=== PATIENT | male | born 1950 | race Caucasian/White ===

== ENCOUNTER → 2016-12-22 | Outpatient (CLI) | payer BC ==
[~2016-12-22] MED LIST: ASPEC81 PO; CARV3.122 PO; GABA-113 PO; GLIP5TAB11 PO; LISI-461 PO; LPT/40 PO
[2016-12-22 10:06] LABS: HEMATOCRIT 42.4 % (42-52); MEAN CELL VOLUME 92.2 fL (80-100); MEAN CORPUSCULAR HEMOGLOBIN 32.6 pg (25-34); MEAN CORPUSCULAR HGB CONC 35.4 g/dl (32-36); MEAN PLATELET VOLUME 10.2 fL (7.4-10.4); PLATELET COUNT 193 K/uL (130-400); WHITE BLOOD COUNT 5.15 K/uL (4.8-10.8)
[2016-12-22 10:23] LABS: ESTIMATED AVERAGE GLUCOSE 148 mg/dl; HA1C FLAG Normal (Normal)
[2016-12-22 10:35] LABS: ALT/SGPT 28 U/L (12-78); AST/SGOT 15 U/L (15-37); BLOOD UREA NITROGEN 14 mg/dl (7-18); BUN/CREATININE RATIO 18.7 (10-20); CALCIUM 9.2 mg/dl (8.5-10.1); CARBON DIOXIDE 28 mmol/L (21-32); CHLORIDE 105 mmol/L (98-107); CREATININE 0.76 mg/dl (0.60-1.40); GLUCOSE 100 mg/dl (70-99); POTASSIUM 3.9 mmol/L (3.5-5.1); SODIUM 137 mmol/L (136-145)
[2016-12-22 10:37] LABS: ALB/GLOB RATIO 1.2 (0.9-2); ALKALINE PHOSPHATASE 71 U/L (45-117); CHOLESTEROL 185 mg/dl (0-200); CHOLESTEROL/HDL RATIO 4.1; HDL CHOLESTEROL 45 mg/dl; LDL CHOLESTEROL CALCULATED 106 mg/dl; TRIGLYCERIDES 171 mg/dl (0-150); VERY LOW DENSITY LIPOPROT CALC 34 mg/dl
== END | disposition home or self-care (01) ==
LOC: C.LAB 08:56
PROVIDERS: ATTEND Internal Medicine
DX: Z00.00 Encounter for general adult medical examination without abnormal findings (principal); E11.9 Type 2 diabetes mellitus without complications; E78.5 Hyperlipidemia, unspecified

== ENCOUNTER → 2017-06-13 | Outpatient (CLI) | payer BC ==
[2017-06-13 09:43] LABS: HEMATOCRIT 45.8 % (42-52); HEMOGLOBIN 16.5 g/dL (14.0-18.0); MEAN CELL VOLUME 91.8 fL (80-100); MEAN CORPUSCULAR HEMOGLOBIN 33.1 pg (25-34); PLATELET COUNT 184 K/uL (130-400); RED CELL DISTRIBUTION WIDTH CV 12.2 % (11.5-14.5); RED CELL DISTRIBUTION WIDTH SD 41.2 fL (36.4-46.3); WHITE BLOOD COUNT 4.65 K/uL (4.8-10.8)
[2017-06-13 09:50] LABS: HEMOGLOBIN A1C 6.8 % (4.5-5.6)
[2017-06-13 10:02] LABS: ALBUMIN 4.1 gm/dl (3.4-5.0); ALT/SGPT 37 U/L (12-78); BLOOD UREA NITROGEN 19 mg/dl (7-18); CALCIUM 9.6 mg/dl (8.5-10.1); CARBON DIOXIDE 26 mmol/L (21-32); CHOLESTEROL 271 mg/dl (0-200); CREATININE 0.91 mg/dl (0.60-1.40); GLUCOSE 131 mg/dl (70-99); SODIUM 136 mmol/L (136-145)
[2017-06-13 10:12] LABS: ALKALINE PHOSPHATASE 68 U/L (45-117); AST/SGOT 17 U/L (15-37); LDL CHOLESTEROL CALCULATED 185 mg/dl; TOTAL PROTEIN 7.7 gm/dl (6.4-8.2)
== END | disposition home or self-care (01) ==
LOC: C.LAB 09:03
PROVIDERS: ATTEND Internal Medicine
DX: Z00.00 Encounter for general adult medical examination without abnormal findings (principal); I25.10 Atherosclerotic heart disease of native coronary artery without angina pectoris; R53.83 Other fatigue; E11.9 Type 2 diabetes mellitus without complications; I10 Essential (primary) hypertension; E78.5 Hyperlipidemia, unspecified

== ENCOUNTER → 2017-07-10 | Outpatient (CLI) | payer BC ==
[~2017-07-10] VITALS: Ht 167.6 cm; Wt 94.8 kg
[~2017-07-10] MED LIST changes: +ASPI81TA28 PO; +CALC500C70 PO; +TAMS0.4C38 PO
[2017-07-10 11:11] VITALS: Ht 167.6 cm; Wt 94.8 kg
--- NOTE | 2017-07-10 11:44 | PAT Medication Instructions ---
Service Date Jul 10, 2017. Current Home Medication List Aspirin (Aspirin Ec), 81 MG PO QAM Calcium/Vitamin D (Os-James 500 Plus D), 1 TAB PO QAM Carvedilol (Coreg), 3.125 MG PO BID Glipizide (Glucotrol), 5 MG PO BID Lisinopril (Zestril), 10 MG PO QAM Tamsulosin Hcl (Flomax), 0.8 MG PO QAM Medication Instructions For Your Scheduled Surgery - Check with surgeon and prescribing physician for instructions: Aspirin (Aspirin Ec), 81 MG PO QAM - Hold the following medications the morning of surgery: Calcium/Vitamin D (Os-James 500 Plus D), 1 TAB PO QAM Glipizide (Glucotrol), 5 MG PO BID Lisinopril (Zestril), 10 MG PO QAM Tamsulosin Hcl (Flomax), 0.8 MG PO QAM - Take the following medications the morning of surgery with a sip of water: Carvedilol (Coreg), 3.125 MG PO BID - Take the following medications as scheduled the night before surgery: Glipizide (Glucotrol), 5 MG PO BID Carvedilol (Coreg), 3.125 MG PO BID If you have any questions please call us at [phone] or [phone] or [phone]
[2017-07-10 12:37] LABS: BASO % 0.4 %; BASO ABS # 0.02 K/uL (0-0.2); EOS % 2.6 %; EOS ABS # 0.13 K/uL (0-0.5); HEMATOCRIT 43.6 % (42-52); HEMOGLOBIN 15.8 g/dL (14.0-18.0); IG# 0.01 K/uL (0.00-0.02); LYMPH % 38.1 %; LYMPH ABS # 1.89 K/uL (1.2-3.4); MEAN CELL VOLUME 90.1 fL (80-100); MEAN CORPUSCULAR HEMOGLOBIN 32.6 pg (25-34); MEAN CORPUSCULAR HGB CONC 36.2 g/dl (32-36); MEAN PLATELET VOLUME 9.9 fL (7.4-10.4); MONO % 8.9 %; MONO ABS # 0.44 K/uL (0.11-0.59); NEUT % 49.8 %; NEUT ABS # 2.47 K/uL (1.4-6.5); PLATELET COUNT 195 K/uL (130-400); RED CELL DISTRIBUTION WIDTH CV 12.2 % (11.5-14.5); RED CELL DISTRIBUTION WIDTH SD 40.2 fL (36.4-46.3); WHITE BLOOD COUNT 4.96 K/uL (4.8-10.8)
--- NOTE | 2017-07-10 12:40 | DIAGNOSTIC IMAGING REPORT ---
CHEST 2 VIEWS ROUTINE CLINICAL HISTORY: PAT preoperative evaluation COMPARISON STUDY: 05/28/2015 FINDINGS: The bones soft tissues and hemidiaphragms are normal. The cardiomediastinal silhouette is normal. The lungs are clear. The pulmonary vasculature is normal. IMPRESSION: Negative chest. The above report was generated using voice recognition software. It may contain grammatical, syntax or spelling errors. Electronically signed by: Kemar Gonzalez M.D. 07/10/2017 12:38 PM Dictated Date/Time: 07/10/2017 12:37 PM
== END | disposition home or self-care (01) ==
LOC: C.LAB 08:00 → EDSTATUS 08-05 09:15
PROVIDERS: ATTEND Orthopaedic Surgery Orthopaedic Surgery of the Spine
DX: Z01.812 Encounter for preprocedural laboratory examination (principal); Z01.810 Encounter for preprocedural cardiovascular examination; Z01.818 Encounter for other preprocedural examination

== ENCOUNTER → 2017-12-25 | Outpatient (CLI) | payer BC ==
[~2017-12-25] MED LIST changes: -ASPEC81 PO; -GABA-113 PO; -LPT/40 PO
--- NOTE | 2017-12-25 14:45 | DIAGNOSTIC IMAGING REPORT ---
R FOOT MIN 3 VIEWS ROUTINE CLINICAL HISTORY: 67 years-old Male presenting with RIGHT FOOT PAIN. TECHNIQUE: Frontal, oblique, and lateral views the right foot were obtained. COMPARISON: None. FINDINGS: Accessory navicular noted. No acute fracture or malalignment. Mild osteophytosis at the first metatarsophalangeal joint. Joint space at the first MTP is preserved. No radiographic soft tissue abnormality. IMPRESSION: No acute osseous injury. Electronically signed by: Steven Baker M.D. 12/25/2017 2:44 PM Dictated Date/Time: 12/25/2017 2:43 PM
== END | disposition home or self-care (01) ==
LOC: C.RAD1850 14:28
PROVIDERS: ATTEND Internal Medicine
DX: M79.671 Pain in right foot (principal)

== ENCOUNTER → 2017-12-31 | Outpatient (CLI) | payer BC ==
[2017-12-31 11:34] LABS: ALBUMIN 4.2 gm/dl (3.4-5.0); ALT/SGPT 28 U/L (12-78); AST/SGOT 17 U/L (15-37); BLOOD UREA NITROGEN 18 mg/dl (7-18); CALCIUM 9.3 mg/dl (8.5-10.1); CARBON DIOXIDE 24 mmol/L (21-32); CHOLESTEROL 211 mg/dl (0-200); CREATININE 0.82 mg/dl (0.60-1.40); GLUCOSE 139 mg/dl (70-99); SODIUM 135 mmol/L (136-145)
[2017-12-31 11:36] LABS: ALKALINE PHOSPHATASE 72 U/L (45-117); LDL CHOLESTEROL CALCULATED 116 mg/dl
--- NOTE | 2017-12-31 11:58 | DIAGNOSTIC IMAGING REPORT ---
CT SCAN OF THE LUMBAR SPINE WITHOUT IV CONTRAST CLINICAL HISTORY: Low back pain. COMPARISON STUDY: MRI of the lumbar spine dated 10/05/2011. Radiographs of lumbar spine dated 10/07/2015. TECHNIQUE: CT scan of the lumbar spine is performed from the lower thoracic spine to the sacrum. Images are reviewed in the axial, sagittal, and coronal planes. IV contrast was not administered for this examination. A dose lowering technique was utilized adhering to the principles of ALARA. The examination is degraded by streak artifact from extensive thoracolumbar spinal fusion hardware. CT DOSE: 821.80 mGy.cm FINDINGS: The skeletal structures are osteopenic. There is no evidence of fracture or malalignment involving the lumbar spine. Vertebral body height is maintained. There is minimal retrolisthesis at L1-L2 and L4-L5. Alignment is otherwise preserved. There is straightening of the lumbar lordosis. There are postoperative changes from laminectomy and posterior fusion seen from T12 to S1. Interpedicular screws are present at all levels. There has been fracture of the right interpedicular screw of S1. The orthopedic hardware is otherwise intact. Bilateral iliac bolts are in place. Anterior osteophytes are seen throughout. No lytic or blastic lesion is seen. The transverse processes appear intact. There has been discectomy at L4-L5 and L5-S1. Advanced disc space narrowing is seen at T12-L1 and L1-L2. Moderate disc space narrowing is seen at L2-L3 and L3-L4. There is no evidence of large disc herniation or high-grade central canal stenosis by CT. There is chronic-appearing fracture involving the left sacral ala seen extending between the interpedicular screw and the iliac bolt (axial images number 314 and number 322). The imaged sacrum is otherwise intact. Fatty atrophy and postoperative change are noted within the paraspinous musculature. The iliopsoas muscles are normal in appearance. There is advanced atherosclerotic calcification and mild ectasia of the abdominal aorta. No retroperitoneal lymphadenopathy is seen. IMPRESSION: 1. No acute bony abnormality is identified involving the lumbar spine. 2. Osteopenia with extensive postoperative and degenerative changes as above. 3. There is fracture of the right interpedicular screw at S1. 4. There is chronic-appearing fracture involving the left sacral ala between the S1 interpedicular screw and the iliac bolt. Dictated: 12/31/2017 11:41 AM Transcribed: 12/31/2017 11:58 AM [email or web address] Electronically signed by: Paul Esposito M.D. 12/31/2017 12:08 PM Dictated Date/Time: 12/31/2017 11:41 AM
[2017-12-31 12:15] LABS: HEMATOCRIT 43.9 % (42-52); HEMOGLOBIN 15.7 g/dL (14.0-18.0); MEAN CELL VOLUME 90.7 fL (80-100); MEAN CORPUSCULAR HEMOGLOBIN 32.4 pg (25-34); MEAN CORPUSCULAR HGB CONC 35.8 g/dl (32-36); MEAN PLATELET VOLUME 10.4 fL (7.4-10.4); PLATELET COUNT 173 K/uL (130-400); RED CELL DISTRIBUTION WIDTH CV 12.2 % (11.5-14.5); RED CELL DISTRIBUTION WIDTH SD 40.2 fL (36.4-46.3); WHITE BLOOD COUNT 4.29 K/uL (4.8-10.8)
[2017-12-31 12:50] LABS: HEMOGLOBIN A1C 7.6 % (4.5-5.6)
== END | disposition home or self-care (01) ==
LOC: C.CTS 10:21
PROVIDERS: ATTEND Orthopaedic Surgery Orthopaedic Surgery of the Spine
DX: Z00.00 Encounter for general adult medical examination without abnormal findings (principal); M47.26 Other spondylosis with radiculopathy, lumbar region; M85.88 Other specified disorders of bone density and structure, other site; E11.9 Type 2 diabetes mellitus without complications; R35.1 Nocturia; I10 Essential (primary) hypertension

== ENCOUNTER 2023-06-27 08:12 | Observation (INO) ==
--- NOTE | 2023-06-27 08:54 | History & Physical Bridge Note ---
Date of Service June 27, 2023 History & Physical Bridge Note I have examined the patient, reviewed the History & Physical and in the interval since the performance of the History & Physical I have noted the following changes of clinical significance: no changes noted
--- NOTE | 2023-06-27 08:55 | Pre Anesthesia Assessment ---
Date of Service June 27, 2023 Pre Sedation Assessment Vital Signs Temp Pulse Resp BP Pulse Ox O2 Del Method 06/27/23 08:36 37 C 62 20 172/92 H 97 Room Air Cardiovascular + regular rate Respiratory + respiratory effort normal Pre-Sedation Airway Assessment Smoking Status: Former smoker Hx Sleep Apnea: No Hx Difficult Intubation: No Short, Thick Neck: No Thyromental Distance: > or= 3.5 Finger Breadths Oral Cavity: + Dentures Mallampati Class: II ASA: ASA3 NPO Status Date of Last Intake of Fluids: 06/26/23 Date of Last Intake of Solid Food: 06/26/23 Procedure Planning Contraindications for Sedation: none Current Medications Reviewed: Yes Notes The planned sedation has been discussed with the patient. Informed Consent was obtained. I have identified the patient, determined the appropriateness of sedation and have assessed the patient immediately prior to the procedure. All medicine(s) and interventions are by my order.
[2023-06-27] MEDS: ASPIRIN 81 MG CHEW ONE (09:00)
[2023-06-27] MEDS: NITROGLYCERIN/D5W 100MCG/ML 20ML SYR ONE (11:12)
[2023-06-27] MEDS: niCARdipine HCL INJ 2.5 MG/ML 10 ML AMP ONE (11:12)
[2023-06-27 12:11] LABS: Chol HDL Ratio 6.1 (0-5)
[2023-06-27] MEDS: HEPARIN (PORCINE) 1000 UNIT/ML 10 ML (CATH LAB USE ONLY) ONE (12:16)
[2023-06-27] MEDS: fentaNYL citrate PF 100 MCG/2 ML VIAL ONE (12:16)
[2023-06-27] MEDS: MIDAZOLAM HCL 1 MG/ML 2ML VIAL ONE ×2 (12:17→12:19)
[2023-06-27] MEDS: OPTIRAY 350 ONE (12:18)
[2023-06-27] MEDS: IODIXANOL (VISIPAQUE) 320 MG/ML 100ML IV ONE (12:19)
--- NOTE | 2023-06-27 12:24 | Cardiac Catheterization ---
[facility] Data: Prefitter Doors Cardiac Status Clinical evaluation leading to the procedure CAD Presenation: Stable angina Diagnostic Physicians Name: Dixon Sutton MD Closure Device Recommendations: CABG Cardiac Cath Procedure Full Procedure Date June 27, 2023 Pre-Procedure Diagnosis Pre-Procedure Diagnosis: Angina AUC Score AUC Score: 7 Post-Procedure Diagnosis Post-Procedure Diagnosis: Severe CAD Procedure(s) Performed Procedure(s) Performed: Coronary Angiography, Left Heart Cath and Right Heart Cath Building Maintenance Supervisor Dixon Sutton MD Diesel Powerplant Supervisor(s) none Estimated Blood Loss Estimated Blood Loss: 15cc Medication(s) Medication(s): Fentanyl, Heparin, Lidocaine 1%, Nicardipine, Nitroglycerin and Versed Summary of Findings Procedure performed: Right heart catheterization, left heart catheterization, selective coronary angiography Staff assembly leader: Dixon Sutton MD Indication: The patient is a 72-year-old individual with a history of nonobstructive coronary disease based on a cardiac catheterization performed in 2010. Despite normal outpatient testing for obstructive coronary disease, he continues to have symptoms and recently presented to the emergency room with exertional chest pain. As such he was advised to consider right and left heart catheterization and coronary angiography today. Procedure in detail The patient was informed the risks benefits and alternatives to the intended procedure. He understood which proceed. He was taken to the cardiac catheterization suite in a fasting state. Conscious sedation was administered per protocol the patient was monitored electrocardiographically throughout today's procedure. A sterile IV had been placed in the right antecubital vein prior to the procedure. This vein was used to facilitate passage of a balloon tip catheter for pressure measurements in the heart and hemodynamic measurements of cardiac output prior to removal. Hemostasis was achieved at this site using manual pressure. The right radial area was prepped and draped in usual sterile fashion. This area was anesthetized using subcutaneous menstruation of a lidocaine solution. Right radial artery was accessed using Seldinger technique and a sheath was placed over guidewire at this site. An attempt to advance the catheter failed at the antecubital fossa. The artery at this point developed a 360 degree turn which could not be negotiated with the catheter. The radial artery sheath was subsequently removed and HemoBand was applied for direct pressure. The left radial area was subsequently prepped and draped in usual sterile fashion. This area was anesthetized using subcutaneous menstruation of lidocaine solution. The left radial artery was subsequently accessed and a sheath was placed over guidewire at this site. However, again the guidewire failed to negotiate the antecubital fossa. There appeared to be significant stenosis of the artery at the antecubital fossa. Catheter could not be passed proximal to that site and this again was abandoned. The left radial artery sheath was removed and hemostasis was achieved using a HemoBand. The right femoral area was prepped and draped in usual sterile fashion. This area was anesthetized using subcutaneous menstruation of lidocaine solution. The right femoral artery was subsequently accessed using Seldinger technique and a sheath was placed over guidewire at this site. The sheath was used facilitate passage of the cardiac catheters for selective coronary angiography and left heart catheterization. Images were obtained in multiple orthogonal views prior removal of the catheters and sheath. The sheath was subsequently removed and he mostasis was achieved using manual pressure. The patient tolerated procedure well. There were no immediate complications. Findings Coronary angiography Left main: Left main was long but bifurcated normally into the left anterior descending and left circumflex arteries. There is approximately 30% stenosis in its midportion Left anterior descending: Left anterior descending was a normal-sized vessel which reached the apex. It produced a very high 1st diagonal branch which had significant luminal irregularities. There was approximately 80% stenosis shortly after the bifurcation from the left main. The vessel subsequently produced a large 2nd diagonal branch with a 90% stenosis in its midportion. Distal to the 2nd diagonal there was a discrete 80% stenosis followed by an aneurysmal segment and an additional distal stenosis. Left circumflex: Left circumflex was a dominant artery. There were 3 medium- sized obtuse marginal branches. There were luminal irregularities throughout the circumflex distribution without discrete stenoses. Right coronary artery: The right coronary was a nondominant vessel. There is a proximal 80% stenosis in its proximal portion. Hemodynamic measurements of cardiac output: Thermodilution 5 liters/minute with an index of 2.49 Joe 4.3 liters/minute with an index of 2.16 Impression: Significant tortuosity and stenosis proximal to both radial arteries preventing passage of diagnostic catheters Significant tortuosity of the right femoral artery necessitating a long sheath for manipulation of diagnostic catheters Obstructive coronary disease involving the left anterior descending, 2nd diagonal and nondominant right coronary Left dominant coronary system Normal pulmonary pressures Mildly elevated left ventricular end-diastolic pressure Hemodynamics Rest Ao:: 105/71 mm of mercury Final Ao: 139/79 mm of mercury LV: 142/10 mm of mercury LVEDP 19 mm of mercury RA: Mean 7 mm of mercury RV: 27/4 mm of mercury PA: 27/11 mm of mercury PW: 10 mm of mercury Recommendations Recommendations: CABG Specimens Specimens: None Radiation Exposure (mGy) 2113 Contrast (mls) 45 Procedural Complication(s) None Disposition Recovery Room\PACU I attest to the content of the Intraoperative Record and any orders documented therein. Any exceptions are noted below. [facility] Card Cath Procedure Codes Cardiac Catheterization Procedure 1: Cardiovascular Cath Procedures: 53620 Coronaries & LHC (+/-LV) & RHC Moderate Sedation Procedure 1: Sedation/Anesthesia: 42663 Mod Sedation by the same physician;Init15 Min Child Age 5 & Up Procedure 2: Sedation/Anesthesia: 79073 Mod Sedation by the same physician; Ea [id number] Minutes PG Care Time/CCT Total # of Minutes Spent Total Time Spent with Patient: Total time spent is greater than 50% in coordination of care (as documented) at patient's floor/unit and/or counseling patient:
--- NOTE | 2023-06-27 12:25 | Post Anesthesia Assessment ---
Date of Service June 27, 2023 Post Sedation Assessment Vital Signs Temp Pulse Resp BP Pulse Ox O2 Del Method 06/27/23 08:36 37 C 62 20 172/92 H 97 Room Air Recovery Score Activity: Moves 4 extremities Respiration: Deep Breath/Cough Circulation: +/-20% PreAnes Value Consciousness: Fully Awake Oxygen Saturation: O2 needed for >90% Discharge Sedation Level of Care: Fast Track Phase II Post Sedation Plan On clinical assessment, the patient appears to have tolerated the sedation without complications. Patient is recovering as anticipated. Patient will continue to be monitored by nursing and may be discharged when sedation discharge criteria are met per below protocol. Upon Completions of procedure up to 15 minutes continue every 5 minute vital signs and the P.A.R. score; then discharge to a Phase I or Fast Track to Phase II per the following guidelines: * Discharge Patient to appropriate Phase II area if PAR is 8 or greater or return to pre- procedure baseline. The post - procedure orders will be as directed. * If PAR score is less than 8 or not return to pre-procedure baseline then patient will follow Phase I monitoring till PAR is reached for Phase II. The Phase I may be done in procedure room or may call to secure a Phase I area. * If naloxone or flumazenil are used for reversal, hold in Phase I for continued monitoring from when last reversal dose was given for a minimum of 60 minutes or longer pending the nurse and/or physician discretion of patient condition before discharge to Phase II. Please call the Sedation Physician to re-evaluate and complete post-note for discharge to Phase II area. Do NOT discharge from procedure sedation or Phase 1 until post- sedation evaluation note is complete by procedure /sedation MD Sedation Discharge Instructions to be given to the patient at discharge to home.
[2023-06-27 12:26] LABS: iSTAT Arterial Blood Gas HCO3 21 meg/L (19-24); iSTAT Arterial Blood Gas pCO2 38 mmHg (35-46); iSTAT Arterial Blood Gas pH 7.36 (7.35-7.45); iSTAT Arterial Blood Gas pO2 81 mmHg (80-95); iSTAT Carbon Dioxide 22 mmol/L (24-31); iSTAT Hematocrit 41 % (42-52); iSTAT Hemoglobin 13.9 g/dl (14.0-18.0); iSTAT Potassium 3.9 mmol/L (3.3-5.0); iSTAT Sodium 140 mmol/L (135-144)
[2023-06-27] MEDS: oxyCODONE HCL IR 5 MG TAB (IMMEDIATE RELEASE) PO PRN (14:21)
--- NOTE | 2023-06-27 15:08 | Electrocardiogram Report ---
Test Reason : Blood Pressure : / mmHG Vent. Rate : 061 BPM Atrial Rate : 061 BPM P-R Int : 210 ms QRS Dur : 146 ms QT Int : 432 ms P-R-T Axes : -15 -06 -23 degrees QTc Int : 434 ms Sinus rhythm with 1st degree A-V block Right bundle branch block Abnormal ECG When compared with ECG of 10-JUN-2023 16:47, No significant change Confirmed by Vince Machado ([id number]) on 06/27/2023 3:08:05 PM Referred By: Stephen Sutton Confirmed By:Vince Machado
[2023-06-27] MEDS ORDERED: NITROGLYCERIN SL 0.4 MG/TAB TAB SL PRN (15:27)
[2023-06-27] MEDS ORDERED: ALUMINUM/MAGNESIUM SUSP 30 ML UDC PO PRN (15:27)
[2023-06-27] MEDS ORDERED: ONDANSETRON INJ 2 MG/ML 2 ML VIAL IV PRN (15:27)
[2023-06-27] MEDS: ACETAMINOPHEN 325 MG TAB PO PRN (15:33)
[2023-06-27 16:57] LABS: iSTAT Arterial Blood Gas HCO3 23 meg/L (19-24); iSTAT Arterial Blood Gas pCO2 42 mmHg (35-46); iSTAT Arterial Blood Gas pH 7.34 (7.35-7.45); iSTAT Arterial Blood Gas pO2 36 mmHg (80-95); iSTAT Carbon Dioxide 24 mmol/L (24-31); iSTAT Hematocrit 42 % (42-52); iSTAT Hemoglobin 14.3 g/dl (14.0-18.0); iSTAT Potassium 3.9 mmol/L (3.3-5.0); iSTAT Sodium 141 mmol/L (135-144)
--- NOTE | 2023-06-27 17:37 | CT Scan Report ---
CT OF THE CHEST WITHOUT IV CONTRAST CLINICAL HISTORY: Aortic aneurysm. COMPARISON STUDY: Chest radiograph June 10, 2023. Chest CT August 28, 2022. CT DOSE: 1150.07 mGy.cm TECHNIQUE: Axial images of the chest were obtained without IV contrast. Images were reviewed in the axial, sagittal, and coronal planes. IV contrast was not administered for this examination. Automat ed exposure control was utilized for the study. A dose lowering technique was utilized adhering to t he principles of ALARA. FINDINGS: No enlarged axillary, mediastinal or hilar lymph nodes are present. There is mild cardiome dirk and extensive coronary calcification. Dilatation of the ascending aorta measuring 4.7 cm at the level of the main pulmonary artery is unchanged since CT of August 28, 2022. Aorta measures a partiall y 4.3 cm at the level of the sinuses of Valsalva. No intramural hematoma is identified. There is no m ediastinal hematoma. Small calcified mediastinal and bilateral hilar lymph nodes are unchanged. There is no pneumothorax or pleural effusion. Central airways are patent. Subpleural opacities represent a telectasis. No consolidation to suggest pneumonia. There are no acute fractures within the bony thora x. Excreted contrast within the bilateral renal collecting systems is incidentally noted. IMPRESSION: 1. Stable mild aneurysmal dilatation of the ascending aorta, measuring 4.7 cm, as detailed above. 2. No acute intrathoracic findings on unenhanced exam. 3. Extensive coronary artery calcification. ACT 112: Negative or not required by law. Electronically signed by: Tim Shafer M.D. 06/27/2023 5:36 PM
[2023-06-27] MEDS ORDERED: IBUPROFEN 200 MG TAB PO PRN (17:43)
[2023-06-27] MEDS: carvediloL 3.125 MG TAB PO SCH (18:48)
[2023-06-28] MEDS: ACETAMINOPHEN 500 MG TAB PO PRN (00:43)
[2023-06-28] MEDS: lisinopril 40 MG TAB PO SCH (07:56)
[2023-06-28] MEDS: ASPIRIN 81 MG ECTAB PO SCH (07:56)
[2023-06-28] MEDS: PANTOprazole 40 MG TAB PO SCH (07:56)
--- NOTE | 2023-06-28 08:45 | Discharge Summary ---
Date of Service June 28, 2023 Discharge Data Allergies Allergy/AdvReac Type Severity Reaction Status Date / Time metformin AdvReac Intermediate Fatigued Verified 06/27/23 08:48 rosuvastatin AdvReac Intermediate myalgia - Verified 06/27/23 08:48 pt does not remember this allergy Procedures Performed Operation Date: 06/27/23 09:30 Actual Procedures p Cineradiography w/Routine Exam - Dixon Sutton MD p Cath, Right and Left Heart - Dixon Sutton MD Ordered Studies 06/27/23 07:06 CL Cath Imgs for PACS use only Routine 06/27/23 12:28 CT chest diagnostic wo con Routine Discharge Plan Discharge Items Patient Disposition: Home - Self-Care Reason For Visit: CARDIAC CATH Discharge Diagnosis: coronary artery disease Activity: Per Instructions section Activity Comment: No vigorous use of either hand or wrist for 7 days. Lifting: No more than 5 pounds Lifting Comment: No heavy lifting or straining for 7 days. Bathing: No limitations Bathing Comment: Do not soak in a tub for 5 days Exercise/Sports: Wait until after follow-up appointment Driving/Machine Use: Resume 1 day after discharge Non-emergency contact: Custodial Foreman Call non-emergency contact if: you have any medication questions and your symptoms worsen Follow-up/Referrals: Matthias Gruber DO [Primary Care Provider] - Diet: Carb Consistent or DM2 and Heart Healthy Addtl Attending Provider Instructions: May remove bandages at your convenience I will increase her dose of carvedilol and add a long-acting nitrate for symptom improvement while we await a surgery consultation Do not take Viagra while taking the new nitroglycerin medication. Pending Studies at Discharge: No Stand-Alone Forms: [facility] [employer], Smoking Cessation Medications and DC Order Prescriptions: New carvedilol 6.25 mg tablet 6.25 mg PO BID Qty: 60 3RF Rx Instructions: must administer with a meal/food isosorbide mononitrate 30 mg tablet extended release 24 hr 30 mg PO DAILY Qty: 30 3RF Continued Mounjaro 5 mg/0.5 mL pen injector 5 mg subcut .weekly Qty: 2 5RF omeprazole 20 mg capsule,delayed release(DR/EC) 20 mg PO DAILY Qty: 90 1RF lisinopril 40 mg tablet 40 mg PO DAILY Qty: 90 3RF (DME) OneTouch Ultra Test Strip See Rx Instructions .ROUTE .MEDSUPPLY Qty: 100 3RF Rx Instructions: use to test once daily aspirin 81 mg Tablet,Delayed Release (Dr/Ec) 81 mg PO DAILY Discontinued sildenafil 50 mg tablet 50 mg PO DAILY PRN (Reason: sexual activity) Qty: 30 1RF Rx Instructions: administer 30 minutes to 4 hours before activity carvedilol 3.125 mg tablet 3.125 mg PO BIDM Qty: 180 3RF Discharge Orders: Discharge Order (Routine); Ordered 06/28/23 Ordered By: Dixon Sutton Admission Data Admit Date/Time: 06/27/23 15:26 Attending Provider: Dixon Sutton Admit Provider: Dixon Sutton Primary Care Provider: Matthias Gruber
== END 2023-06-28 10:12 | disposition home or self-care (01) ==
LOC: 2S 08:12 → CC 08:12